=== PATIENT | male | born 1955 | race Caucasian/White ===

== ENCOUNTER → 2024-02-10 09:44 | Outpatient (REF) | payer MEDICARE, SELFPAY | LOC: RAD 09:44 | PROVIDERS: ATTENDING PHYSICIAN Family Medicine | DX: Z00.00 Encounter for general adult medical examination without abnormal findings (principal) | CPT/HCPCS: 93978 ==

== ENCOUNTER 2025-03-28 16:16 | Emergency (ER) | payer MEDICARE, SELFPAY ==
[2025-03-28 16:29] VITALS: BP 184/91
[2025-03-28 16:33] VITALS: BP 166/96
--- NOTE | 2025-03-28 18:52 | ED.GENMED ---
History of Present Illness
General
Chief Complaint: Eye Problems
Source: patient
Time Seen by Provider: 03/28/25 18:10
History of Present Illness
History of Present Illness:
Note:
CHIEF COMPLAINT(S)
Blurred vision in the right eye.
HISTORY OF PRESENT ILLNESS
The patient is a 70-year-old male who was playing cards when he suddenly noticed a straight red line from top to bottom in his right eye, described as solid red. He covered his right eye and noted his vision was fine when viewed with the left eye
alone. Over approximately 15 minutes, the red line transitioned into a bloodshot appearance, resembling a 'spider-like' pattern. The patient applied a cold compress, leading to 90% improvement in symptoms. However, he subsequently experienced double
vision and persistent blurred vision, now described as obscure and opaque, particularly affecting his distance vision. He likened the visual distortion to a sight seen through the glass in the emergency rooms waiting area.
The patient did not report complete loss of vision, stating, 'I can see you.' He has a history of broken blood vessels in the eyes, but this previously presented as a subconjunctival hemorrhage affecting the white of the eye. There is no history of
retinal problems. Before this episode, his vision was reported as fine.
The patients visual acuity was tested during the visit, showing near-normal results with corrective lenses. He denies any use of prescription medications.
SOCIAL HISTORY
The patient occasionally uses glasses prescribed by an equipment installer at [facility].
PHYSICAL EXAM
General: Alert, no acute distress.
Eye Ears, nose, mouth and throat: Oral mucosa moist; includes examination of visual acuity which demonstrated b/l 20/20 vision; extraocular muscles intact, and cranial nerves tested and found intact. No papilledema noted.
Musculoskeletal: Normal range of motion, normal strength.
Neurological: Alert and oriented to person, place, time, and situation, no focal neurological deficit observed.
Psychiatric: Cooperative, appropriate mood & affect.
PLAN
A comprehensive eye examination will be conducted to evaluate the potential for retinal issues such as retinal thinning or vitreous hemorrhage. Further ophthalmologic evaluation will help determine if there is a micro retinal separation or other
related conditions. Given the absence of complete vision loss, immediate concerns for artery occlusion or complete retinal tear are minimized.
DIFFERENTIAL DIAGNOSIS
The Differential Diagnosis includes, in no particular order and is not limited to:
1. Vitreous hemorrhage
2. Retinal detachment
3. Retinal artery occlusion
4. Retinal vein occlusion
5. Ocular migraine
6. Subconjunctival hemorrhage
7. Posterior vitreous detachment
8. Retinal thinning
9. Intraocular foreign body
10. Optic neuritis
Disposition:
SUMMARY OF ENCOUNTER
The patient, a 70-year-old male, presented to the emergency department with blurred vision in the right eye, described as obscure and opaque. A bedside ultrasound was performed, revealing some debris in the posterior aspect of the eye and raising
the question of a potential small retinal separation. The patient did not experience complete vision loss, and his visual acuity was normal at 20/20 in both eyes. His visual robledo were intact, and he only complained of blurred vision.
MANAGEMENT OF THE PATIENTS CARE WAS DISCUSSED WITH
The case was discussed with ophthalmology, and the ultrasound image was sent for their review.
PLAN
Given the patients stability, he is to follow up with ophthalmology for a comprehensive examination. An appointment was arranged with Dr. Aquino at 7:30 AM the following day.
PATIENT EDUCATION AND COUNSELING
The patient was informed about the findings of the ultrasound and the plan for follow-up with ophthalmology to evaluate further potential retinal issues. He was made comfortable with the plan and understands the need for prompt evaluation.
FOLLOW-UP INSTRUCTIONS
The patient is to follow up with ophthalmology at 7:30 AM the next day with Dr. Aquino.
MEDICAL DECISION MAKING
-Complexity of Data Reviewed: The potential differential diagnoses include vitreous hemorrhage, retinal detachment, retinal artery occlusion, retinal vein occlusion, ocular migraine, subconjunctival hemorrhage, posterior vitreous detachment, retinal
thinning, intraocular foreign body, and optic neuritis.
-Data:
Category 1
A bedside ultrasound was performed showing some debris in the posterior aspect of the eye and the possibility of a small retinal separation.
Category 3
The case and management plan were discussed with an mortgage or loan underwriter, and the ultrasound image was shared for their input.
DIAGNOSIS
The provisional diagnosis may include:
- Possibility of small retinal separation (H33.20)
- Vitreous opacity or debris (H43.393)
Phy Exam
Physical Exam
Physical Exam:
.
Course
Vital Signs
Initial and Last Documented VS:
Initial Vital Signs
Temp Pulse Resp BP Pulse Ox
98.4 F 77 16 184/91 98
03/28/25 16:29 03/28/25 16:29 03/28/25 16:29 03/28/25 16:29 03/28/25 16:29
Last Documented Vital Signs
Temp Pulse Resp BP Pulse Ox
98.4 F 77 16 166/96 98
03/28/25 16:29 03/28/25 16:29 03/28/25 16:29 03/28/25 16:33 03/28/25 18:52
*Pulse Oximetry
SaO2: 98
Oxygen Mode of Delivery: Room air
Patient hypoxic: no
*Critical Care Note
Total Time (30-74mins, 75-104mins- exclusive of procedures): Not Applicable
ED Attending Note
-
Portions of this chart may have been created with voice recognition software.� Occasional wrong word or��sound alike� substitutions may have occurred due to the inherent limitations of voice recognition software.
Discharge Plan
Departure
Patient Disposition: Home (Routine Discharge)
Date of Disposition: 03/28/25
Time of Disposition: 18:54
Patient with high blood pressure during this ER visit?: Yes
Discharge Problem:
Blurred vision
Instructions: BLOOD PRESSURE
Referrals:
[facility] [Provider Group]
[facility] [Provider Group]
Activity Restrictions/Additional Instructions:
Blurry vision
Possible retinal pathology
Possible vitreous hemorrhage
Please see Dr. Burns tomorrow at 7:30 AM at his office. Return if worse or any other concerns
Interventions
Interventions:
*Risk Screen - Suicide Last Done: 03/28/25 16:29
*General Assessment Last Done: 03/28/25 16:48
*Neglect/Abuse Screening Last Done: 03/28/25 16:29
Discharge Date and Time
Print Language: [place]
[2025-03-28 19:11] VITALS: BP 160/72
== END 2025-03-28 19:16 | disposition home or self-care (01) ==
LOC: EMR 16:16
PROVIDERS: EMERGENCY PHYSICIAN Emergency Medicine; FAMILY PHYSICIAN Family Medicine
DX: H53.8 Other visual disturbances (principal); H53.2 Diplopia
CPT/HCPCS: 99283